=== PATIENT | male | born 1980 | race Caucasian/White ===

== ENCOUNTER → 2016-09-15 | Outpatient (CLI) | payer BC ==
[~2016-09-15] MED LIST: ALBUAER2 INH; LRT5 PO
[2016-09-15 13:27] LABS: BASO % 0.3 %; BASO ABS # 0.03 K/uL (0-0.2); COMPLETE YES; EOS % 1.5 %; HEMATOCRIT 44.5 % (42-52); IG% 0.2 %; LYMPH % 30.9 %; LYMPH ABS # 2.94 K/uL (1.2-3.4); MEAN CELL VOLUME 83.5 fL (80-100); MEAN CORPUSCULAR HEMOGLOBIN 28.3 pg (25-34); MEAN CORPUSCULAR HGB CONC 33.9 g/dl (32-36); MEAN PLATELET VOLUME 11.1 fL (7.4-10.4); NEUT % 60.1 %; PLATELET COUNT 348 K/uL (130-400); RED BLOOD COUNT 5.33 M/uL (4.7-6.1); WHITE BLOOD COUNT 9.52 K/uL (4.8-10.8)
[2016-09-15 14:20] LABS: LYME DISEASE AB IGG NEG (NEG); LYME DISEASE AB IGM NEG (NEG)
== END | disposition home or self-care (01) ==
LOC: C.LAB 12:34
DX: M19.90 Unspecified osteoarthritis, unspecified site (principal)

== ENCOUNTER → 2016-09-15 | Outpatient (CLI) | payer BC ==
--- NOTE | 2016-09-15 15:03 | DIAGNOSTIC IMAGING REPORT ---
Venous Doppler left leg LEFT VENOUS DOPP LOWER EXT UNILAT CLINICAL HISTORY: PAIN edema TECHNIQUE: Venous Doppler COMPARISON STUDY: None FINDINGS: Normal study IMPRESSION: Normal venous Doppler left leg. Electronically signed by: Luis M Callejas M.D. 09/15/2016 3:02 PM Dictated Date/Time: 09/15/2016 3:01 PM
== END | disposition home or self-care (01) ==
LOC: C.ULTR 14:38
DX: M79.605 Pain in left leg (principal); R79.1 Abnormal coagulation profile

== ENCOUNTER → 2016-10-30 | Outpatient (CLI) | payer BC ==
[2016-10-30 09:39] LABS: BASO % 0.5 %; BASO ABS # 0.04 K/uL (0-0.2); COMPLETE YES; EOS % 2.8 %; HEMATOCRIT 48.6 % (42-52); IG% 0.1 %; LYMPH % 32.8 %; LYMPH ABS # 2.69 K/uL (1.2-3.4); MEAN CELL VOLUME 84.1 fL (80-100); MEAN CORPUSCULAR HEMOGLOBIN 27.9 pg (25-34); MEAN CORPUSCULAR HGB CONC 33.1 g/dl (32-36); MEAN PLATELET VOLUME 10.8 fL (7.4-10.4); NEUT % 57.8 %; PLATELET COUNT 262 K/uL (130-400); RED BLOOD COUNT 5.78 M/uL (4.7-6.1); WHITE BLOOD COUNT 8.21 K/uL (4.8-10.8)
[2016-10-30 10:07] LABS: MAGNESIUM 2.1 mg/dl (1.8-2.4); RHEUMATOID FACTOR < 10.0 U/mL (0-15); THYROID STIMULATING HORMONE 0.979 uIu/ml (0.300-4.500)
== END | disposition home or self-care (01) ==
LOC: C.LAB 08:10
DX: M19.90 Unspecified osteoarthritis, unspecified site (principal); G62.9 Polyneuropathy, unspecified

== ENCOUNTER → 2016-11-09 | Outpatient (CLI) | payer BC ==
--- NOTE | 2016-11-09 16:04 | DIAGNOSTIC IMAGING REPORT ---
MRI OF THE LEFT KNEE WITHOUT CONTRAST CLINICAL HISTORY: Left knee pain and swelling. No recent injury. COMPARISON STUDY: None. TECHNIQUE: Utilizing a 1.5 Carolyn magnet and dedicated coil, multiplanar, multiecho imaging of the left knee was performed without intravenous or intraarticular contrast. FINDINGS: Alignment of the left knee is anatomic. There is no joint effusion. The extensor mechanism is intact. The cruciate and collateral ligaments are intact. There is no meniscal tear. No significant cartilage abnormality is present. There is moderate increased T2 signal superficial to the inferior lateral aspect of the patellar tendon as well as overlying the lateral anterior aspect of the proximal left tibia. IMPRESSION: 1. No internal derangement of the left knee. 2. Moderate edema overlying the inferolateral aspect of the patellar tendon and anterolateral aspect of the proximal left tibia which suggests superficial infrapatellar bursitis. Electronically signed by: Roly Marino M.D. 11/09/2016 4:03 PM Dictated Date/Time: 11/09/2016 12:58 PM
== END | disposition home or self-care (01) ==
LOC: C.MRI 12:02
DX: M25.562 Pain in left knee (principal); M25.462 Effusion, left knee

== ENCOUNTER → 2017-01-20 | Outpatient (CLI) | payer BC ==
[2017-01-20 10:35] LABS: BLOOD UREA NITROGEN 15 mg/dl (7-18); BUN/CREATININE RATIO 16.3 (10-20); CALCIUM 9.1 mg/dl (8.5-10.1); CARBON DIOXIDE 26 mmol/L (21-32); CHLORIDE 105 mmol/L (98-107); CHOLESTEROL 177 mg/dl (0-200); GLUCOSE 92 mg/dl (70-99); POTASSIUM 3.8 mmol/L (3.5-5.1); SODIUM 138 mmol/L (136-145)
[2017-01-20 10:41] LABS: CHOLESTEROL/HDL RATIO 3.8; FERRITIN 139.7 ng/ml (8.0-388.0); HDL CHOLESTEROL 46 mg/dl; LDL CHOLESTEROL CALCULATED 107 mg/dl; TRIGLYCERIDES 120 mg/dl (0-150); VERY LOW DENSITY LIPOPROT CALC 24 mg/dl
== END | disposition home or self-care (01) ==
LOC: C.LAB 09:12
DX: E78.5 Hyperlipidemia, unspecified (principal); K21.9 Gastro-esophageal reflux disease without esophagitis; G25.81 Restless legs syndrome